=== PATIENT | female | born 1995 | race Caucasian/White ===

== ENCOUNTER 2017-12-02 16:53 | Emergency (ER) | payer BC ==
[2017-12-02 17:00] VITALS: BP 152/70
--- NOTE | 2017-12-02 17:42 | ED.ADGEN ---
Adult General Chief Complaint Chief Complaint " I [place] dog [place] on [place].. I stopped and he jumped into my car.. blood everywhere and he bit my Lt. hand,, the midlle and little finger..." HPI HPI Patient is a 22 year old female who presents with above history of attempting to help a stray dog who had been hit by a car. The dog jumped into her car and she attempted to calm the dog, the dog bit her on her Lt. hand left third finger and fifth finger have small abrasions. Patient does not remember her last tetanus shot. Patient is normally healthy. No history of travel. No history immunosuppression. Patient did call the [facility]on[facility] department and advised he could do nothing with the dog. Dog eventually ran off and has not been located since initial encounter. Patient is 6 months . Review of Systems Review of Systems Constitutional: Denies fever or chills [] Eyes: Denies change in visual acuity, redness, or eye pain [] HENT: Denies nasal congestion or sore throat [] Respiratory: Denies cough or shortness of breath [] Cardiovascular: No additional information not addressed in HPI [] GI: Denies abdominal pain, nausea, vomiting, bloody stools or diarrhea [] : Denies dysuria or hematuria [] Musculoskeletal: Denies back pain or joint pain [] Integument: Denies rash or skin lesions [ Complaints of dog bite left hand Neurologic: Denies headache, focal weakness or sensory changes [] Endocrine: Denies polyuria or polydipsia [] All other systems were reviewed and found to be within normal limits, except as documented in this note. Family History Family History Noncontributory Current Medications Current Medications Current Medications Medications (Trade) Dose Ordered Sig/Huma Start Time Stop Time Status Last Admin Dose Admin Amoxicillin/ Clavulanate Potassium (Augmentin 875/ 125mg) 1 tab 1X ONCE 12/02/17 18:30 12/02/17 18:31 DC 12/02/17 18:30 1 TAB Diphtheria/ Tetanus/Acell Pertussis (Boostrix) 0.5 ml ONCE ONCE 12/02/17 18:00 12/02/17 18:20 DC 12/02/17 18:00 0.5 ML See nursing for home meds Allergies Allergies Allergies Coded Allergies Type Severity Reaction Last Updated Verified No Known Drug Allergies 12/02/17 No Physical Exam Physical Exam Constitutional: Well developed, well nourished, no acute distress, non-toxic appearance. [] HENT: Normocephalic, atraumatic, bilateral external ears normal, oropharynx moist, no oral exudates, nose normal. [] Eyes: PERRLA, EOMI, conjunctiva normal, no discharge. [] Neck: Normal range of motion, no tenderness, supple, no stridor. [] Cardiovascular:Heart rate regular rhythm, no murmur [] Lungs & Thorax: Bilateral breath sounds clear to auscultation [] Abdomen: Bowel sounds normal, soft, no tenderness, no masses, no pulsatile masses. [] Gravid Skin: Warm, dry, no erythema, no rash. [] Back: No tenderness, no CVA tenderness. [] Extremities: No tenderness, no cyanosis, no clubbing, ROM intact, no edema. [] Dog bite left hand as per history of present illness Neurologic: Alert and oriented X 3, normal motor function, normal sensory function, no focal deficits noted. [] Psychologic: Affect normal, judgement normal, mood normal. [] Current Patient Data Vital Signs Vital Signs Date Time Temp Pulse Resp B/P (MAP) Pulse Ox O2 Delivery O2 Flow Rate FiO2 12/02/17 17:00 98.6 86 16 100 Room Air EKG EKG [] Radiology/Procedures Radiology/Procedures [] Course & Med Decision Making Course & Med Decision Making Pertinent Labs and Imaging studies reviewed. (See chart for details) Discussed at length with patient and family pros and cons of administration of rabies vaccine and gamma globin. Currently on review with pharmacy, rabies prophylaxis, is a class C drug in . Use determined on risk factors. Patient currently elects not to receive vaccine or gamma globin. Patient will take Augmentin twice a day. Patient keep abrasions clean and dry. Rehabilitation Physician's department informed of injury and did attempt to locate the dog. [] Final Impression Final Impression 1. Dog Bite[] Problems: Dragon Disclaimer Dragon Disclaimer This electronic medical record was generated, in whole or in part, using a voice recognition dictation system. RACHEL LIN MD Dec 02, 2017 17:42
[2017-12-02] MEDS ORDERED: DIPHTH,PERTUSS(ACELL),TET TOX 0.5 ML DISP.SYRIN. VAX IM ONE (18:00)
[2017-12-02] MEDS ORDERED: AMOXICILLIN/K CLAV 875/125MG TABLET. PO ONE (18:30)
[2017-12-02] MEDS ORDERED: AMOX1TAB61 PO (18:43)
== END 2017-12-02 19:04 | disposition home or self-care (01) ==
LOC: ER 16:53
DX: S61.452A Open bite of left hand, initial encounter (principal); S60.413A Abrasion of left middle finger, initial encounter; S60.417A Abrasion of left little finger, initial encounter; W54.0XXA Bitten by dog, initial encounter; Y93.89 Activity, other specified; Y99.8 Other external cause status; Y92.89 Other specified places as the place of occurrence of the external cause
CPT/HCPCS: 90471; 90715; 99283-25

== ENCOUNTER 2021-10-12 09:38 | Emergency (ER) | payer BC, OTHER ==
[~2021-10-12] VITALS: Ht 162.6 cm; Wt 100.0 kg
[~2021-10-12 09:38] MED LIST: AMOX1TAB61 PO
[2021-10-12 10:02] VITALS: BP 137/91
[2021-10-12] MEDS ORDERED: FAMOTIDINE 20 MG TABLET PO ONE (10:15)
[2021-10-12] MEDS ORDERED: predniSONE 20 MG TABLET PO ONE (10:15)
[2021-10-12] MEDS ORDERED: PRED20TA PO (10:23)
--- NOTE | 2021-10-12 10:24 | PHYS DOC ---
Past History Past Medical History: Hypothyroid (SHANNAN MULLIGAN APRN) Past Surgical History: No Surgical History (SHANNAN MULLIGAN APRN) Alcohol Use: None Drug Use: None (SHANNAN MULLIGAN APRN) General Adult EDM: Chief Complaint: SKIN PROBLEM HPI: HPI: Patient is a 25-year-old female presents with hives since yesterday. Patient denies any new lotions, detergents, soaps. Denies cough or shortness of breath. Patient states that rash is itchy. Patient took Benadryl at 3 AM to help with symptoms. (SHANNAN MULLIGAN APRN) Review of Systems: Review of Systems: ROS At least 10 ROS systems have been reviewed and are negative except as documented in the HPI. General: Negative except as outlined in HPI above. Skin: Negative except as outlined in HPI above. HEENT: Negative except as outlined in HPI above. Neck: Negative except as outlined in HPI above. Respiratory: Negative except as outlined in HPI above.. Cardiovascular: Negative except as outlined in HPI above. Abdomen: Negative except as outlined in HPI above. : Negative except as outlined in HPI above. Back/MSK: Negative except as outlined in HPI above. Neuro: Negative except as outlined in HPI above. Psych: Negative except as outlined in HPI above. (SHANNAN MULLIGAN APRN) Allergies: Allergies: Allergies Coded Allergies Type Severity Reaction Last Updated Verified No Known Drug Allergies 12/02/17 No (SHANNAN MULLIGAN APRN) Physical Exam: PE: Constitutional: Well developed, well nourished, no acute distress, non-toxic appearance. [] HENT: Normocephalic, atraumatic, bilateral external ears normal, oropharynx moist, no oral exudates, nose normal. [] Eyes: PERRLA, EOMI, conjunctiva normal, no discharge. [] Neck: Normal range of motion, no tenderness, supple, no stridor. [] Cardiovascular:Heart rate regular rhythm, no murmur [] Lungs & Thorax: Bilateral breath sounds clear to auscultation [] Abdomen: Bowel sounds normal, soft, no tenderness, no masses, no pulsatile masses. [] Skin: Raised, red urticaria Back: No tenderness, no CVA tenderness. [] Extremities: No tenderness, no cyanosis, no clubbing, ROM intact, no edema. [] Neurologic: Alert and oriented X 3, normal motor function, normal sensory function, no focal deficits noted. [] Psychologic: Affect normal, judgement normal, mood normal. [] (SHANNAN MULLIGAN APRN) Current Patient Data: Vital Signs: Vital Signs Date Time Temp Pulse Resp B/P (MAP) Pulse Ox O2 Delivery O2 Flow Rate FiO2 10/12/21 10:02 98.3 96 16 137/91 (106) 95 Room Air (SHANNAN MULLIGAN APRN) EKG: EKG: [] (SHANNAN MULLIGAN APRN) Radiology/Procedures: Radiology/Procedures: [] (SHANNAN MULLIGAN APRN) Heart Score: C/O Chest Pain: No Risk Factors: Risk Factors: DM, Current or recent (<one month) smoker, HTN, HLP, family history of CAD, obesity. Risk Scores: Score 0 - 3: 2.5% MACE over next 6 weeks - Discharge Home Score 4 - 6: 20.3% MACE over next 6 weeks - Admit for Clinical Observation Score 7 - 10: 72.7% MACE over next 6 weeks - Early Invasive Strategies (SHANNAN MULLIGAN APRN) Course & Med Decision Making: Course & Med Decision Making Pertinent Labs and Imaging studies reviewed. (See chart for details) [] 25-year-old male presents with raised , red, pruritic, urticaria. Patient given medication to treat symptoms while in the ER. Sending patient home with prednisone. Advised patient to continue taking Benadryl or Zyrtec to help with symptoms. Discussed return precautions in length. Advised patient to follow-up with PCP if symptoms do not improve return to the emergency room if worsening symptoms or concerns. Patient voices understanding of discharge instructions (SHANNAN MULLIGAN APRN) Dragon Disclaimer: Dragon Disclaimer: This electronic medical record was generated, in whole or in part, using a voice recognition dictation system. (SHANNAN MULLIGAN APRN) Attending Co-Sign The patient was seen and interviewed as well as examined at the bedside. The chart was reviewed. The case was discussed. Agree with the plan of care. (JULIA DAVIS DO) Departure Departure: Impression: Primary Impression: Allergic urticaria Disposition: HOME / SELF CARE / HOMELESS Condition: STABLE Referrals: PCP,NO (PCP) Patient Instructions: Hives, [id number] Additional Instructions: You were seen in the emergency room for a itchy, raised rash. You were given medications in the ER to help with symptoms. Stay home with steroids. Continue taking Benadryl or Zyrtec to help with itching. Follow-up with your PCP if symptoms do not improve. Return emergency room with worsening symptoms or concerns EMERGENCY DEPARTMENT GENERAL DISCHARGE INSTRUCTIONS Thank you for coming to [facility] (ED) today and trusting us with you care. We trust that you had a positivie experience in our Emergency Department. If you wish to speak to the department management, you may call the director at [phone]. YOUR FOLLOW UP INSTRUCTIONS ARE FOLLOWS: 1. Do you have a private Doctor? If you do not have a private doctor, please ask for a resource list of physicians or clinics that may be able to assist you with follow up care. 2. The Emergency Physician has interpreted your x-rays. The X-Ray specialist will also review them. If there is a change in the findings, you will be notified in 48 hours when at all possible. 3. A lab test or culture has been done, your results will be reviewed and you will be notified if you need a change in treatment. ADDITIONAL INSTRUCTIONS AND INFORMATION: 1. Your care today has been supervised by a physician who is specially trained in emergency care. Many problems require more than one evaluation for a complete diagnosis and treatment. We recommend that you schedule your follow up appointment as recommended to ensure complete treatment of you illness or injury. If you are unable to obtain follow up care and continue to have a problem, or if your condition worsens, we recommend that you return to the ED. 2. We are not able to safely determine your condition over the phone nor are we able to give sound medical advice over the phone. For these safety reasons, if you call for medical advice we will ask you to come to the ED for further evaluation. 3. If you have any questions regarding these discharge instructions please call the ED at [phone]. SAFETY INFORMATION: In the interest of safety, wellness, and injury prevention; we encourage you to wear your sealbelt, if you smoke; quite smoking, and we encourage family to use a protective helmet for bicycling and other sporting events that present an increased risk for head injury. IF YOUR SYMPTOMS WORSEN OR NEW SYMPTOMS DEVELOP, OR YOU HAVE CONCERNS ABOUT YOUR CONDITION; OR IF YOUR CONDITION WORSENS WHILE YOU ARE WAITING FOR YOUR FOLLOW UP APPOINTMENT; EITHER CONTACT YOUR PRIMARY CARE DOCTOR, THE PHYSICIAN WHOSE NAME AND NUMBER YOU WERE GIVEN, OR RETURN TO THE ED IMMEDIATELY. Scripts Prednisone (PREDNISONE) 20 Mg Tablet 3 TAB PO DAILY for allergies for 5 Days, #15 TAB Prov: SHANNAN MULLIGAN APRN 10/12/21 SHANNAN MULLIGAN APRN Oct 12, 2021 10:23 JULIA DAVIS DO Oct 16, 2021 10:05
== END 2021-10-12 10:44 | disposition home or self-care (01) ==
LOC: ER 09:38
DX: L50.0 Allergic urticaria (principal)
CPT/HCPCS: 99283; J7512